=== PATIENT | female | born 1985 | race Caucasian/White ===

== ENCOUNTER 2017-05-25 13:57 | Emergency (ER) | payer OTHER ==
[~2017-05-25] VITALS: Ht 149.9 cm; Wt 45.4 kg
--- NOTE | 2017-05-25 14:19 | ED PSYCHIATRIC COMPLAINT ---
History of Present Illness General Chief Complaint: Psychiatric Related Complaint Stated Complaint: ?BIPOLAR/POST- DEPRESSION Source: patient, family, old records Exam Limitations: no limitations Vital Signs & Intake/Output Vital Signs & Intake/Output Vital Signs Date Time Temp Pulse Resp B/P B/P Pulse O2 O2 Flow FiO2 Mean Ox Delivery Rate 05/25 2131 98.2 94 18 111/65 97 Room Air 05/25 1702 98.5 104 18 107/61 96 Room Air 05/25 1406 98.0 101 20 125/77 98 Room Air ED Intake and Output 05/26 0000 05/25 1200 Intake Total Output Total Balance Patient 99 lb 15.99 oz Weight Weight Reported by Patient Measurement Method Allergies Coded Allergies: No Known Allergies (05/25/17) Reconcile Medications Creatine (Unknown Strength) POWDER (Unknown Dose) PO DAILY SUPPLEMENT ( Reported) Vitamin E Acid Succinate (Vitamin E) (Unknown Strength) TABLET (Unknown Dose) PO DAILY SUPPLEMENT (Reported) Triage Note: PT TO ED WITH WITH ?BIPOLAR, POST DEPRESSION. PT CRYING AND LAUGHING IN TRIAGE, Triage Nurses Notes Reviewed? yes Onset: Gradual Duration: week(s):, constant, getting worse Timing: recent history Severity: moderate Severity Numbers: 10 Associated Symptoms: denies : No Patient currently breastfeeds: No HPI: 32 year old female with history of bipolar, depression and alcohol abuse presents to the ER with her for evaluation. According to the patient's she has been acting differently than normal with "multiple personalities" for the past 2 days. They have 2 children at home the youngest is approximately 1 year old. She was hospitalized in December for one week for similar symptoms. She is not currently on any medications. She drinks half a bottle of hard liquor every day she denies any use today. No drug use when questioned the patient denies suicidal or homicidal ideation however at times her first or herself in the third person. (CHET CORMIER,KATHY) Past History Travel History Traveled to [place] past 21 day No Medical History Any Pertinent Medical History? see below for history Neurological: NONE EENT: NONE Cardiovascular: NONE Respiratory: NONE Gastrointestinal: NONE Hepatic: NONE Renal: NONE Musculoskeletal: NONE Psychiatric: anxiety, bipolar disease, depression Endocrine: NONE Blood Disorders: NONE Cancer(s): NONE BUSINESS SYSTEMS ADVISOR/Reproductive: NONE Surgical History Surgical History: non-contributory Psychosocial History What is your primary language O[place]i Tobacco Use: Current Daily Use Daily Tobacco Use Amount/Type: => 5 Cigarettes daily ETOH Use: denies use Illicit Drug Use: denies illicit drug use Family History Hx Contributory? No (KATHY MORRISON) Review of Systems Review of Systems Constitutional: Reports: see HPI. Comments Review of systems: See HPI, All other systems negative. Constitutional, no chills no fever, no malaise HEENT: no sore throat no congestion, no ear pain Cardiovascular: No chest pain , no palpitation Skin: no rashes, no change in skin Respiratory: No dyspnea no cough no sputum GI: No nausea no vomiting, no diarrhea, : No dysuria No hematuria, Muscle skeletal: No joint pain, no joint swelling, no back pain Neurologic: No numbness no confusion, no headache Psych: See hPI Heme/endocrine: No bruising no bleeding Immunology: No lymphadenopathy (KATHY MORRISON) Physical Exam Physical Exam General Appearance: well developed/nourished, no apparent distress, alert, awake Neurological/Psychiatric: no motor/sensory deficits, awake, junior underwriter II-XII nml as tested Appearance/Memory/Insight: impaired insight Behavoir/Eye Contact/Speech: cooperative Comments: Well-developed well-nourished person in no acute distress HEENT: Normal EENT exam; PERRL, EOMI, HEAD is atraumatic. moist mucous membranes. Neck: Supple, normal range of motion Back: Nontender, Full range of motion Cardiovascular: Regular rate and rhythms no murmurs rubs Respiratory: Chest nontender.There were no bony deformities, no asymmetry. No respiratory distress. Patient speaking in full complete sentences. Breath sounds clear to auscultation bilaterally: NO W/R/R Abdomen: Soft, nontender nondistended, no appreciable organomegaly. Normal bowel sounds. No rebound/guarding, Extremity: No edema, full range of motion of extremities, Neuro: Alert oriented x3, motor sensory normal, cranial nerves II through XII grossly intact. There were no obvious focal neurologic abnormalities. Skin: No appreciable rash on exposed skin, skin is warm and dry. Psych: Mood and affect is normal, memory and judgment is normal. SAD PERSONS Done? patient not suicidal (KATHY MORRISON) Progress Differential Diagnosis: drug intoxication, drug withdrawal, electrolyte abnormality, BIPOLAR Plan of Care: Orders Procedure Date/time Status Regular Diet 05/26 B Active URINE DRUG SCREEN FOR ER ONLY 05/25 143 Complete ETHANOL 05/25 143 Complete COMPREHENSIVE METABOLIC PANEL 05/25 143 Complete CBC WITHOUT DIFFERENTIAL 05/25 1436 Complete ED CRISIS PSYCH CONSULT 05/25 1436 Active Laboratory Tests 05/25/17 1450: Serum Alcohol 375.0 05/25/17 1450: Anion Gap 11, Estimated GFR > 60, BUN/Creatinine Ratio 14.3, Glucose 81, Calcium 8.6, Total Bilirubin 0.6, AST 40 H, ALT 32, Alkaline Phosphatase 64, Total Protein 6.4, Albumin 3.9, Globulin 2.5, Albumin/Globulin Ratio 1.6, CBC w Diff NO MAN DIFF REQ, RBC 4.32, MCV 81.1, MCH 25.9 L, RDW 22.7 H, MPV 8.4, Gran % 49.6, Lymphocytes % 44.4, Monocytes % 4.7, Eosinophils % 0.9, Basophils % 0.4, Absolute Granulocytes 1.9, Absolute Lymphocytes 1.7, Absolute Monocytes 0.2, Absolute Eosinophils 0, Absolute Basophils 0, PUBS MCHC 32.0 L, Urine Opiates Screen < 100.00, Methadone Screen < 40, Barbiturate Screen < 60, Ur Phencyclidine Scrn < 6.00, Amphetamines Screen < 100, U Benzodiazepines Scrn < 85, Urine Cocaine Screen < 50, Urine Cannabis Screen 78.60 H Labs ordered old records reviewed case discussed with Dr. Desouza crisis consult ordered (KATHY MORRISON) Hand-Off Endorsed To: BRENDA FUENTES,GARRICK Bergman Endorsed Time: 2003 Pending: consult (crisis), other (sobriety) (KATHY MORRISON) Departure Departure Disposition: STILL A PATIENT Condition: Stable Clinical Impression Primary Impression: Alcohol intoxication Secondary Impressions: Cannabis abuse Referrals: PATIENT HAS NO PRIMARY CARE DR (PCP/Family) Departure Forms: Customer Survey General Discharge Information (KATHY MORRISON) Departure Comments 05/25/17, 20:50... pt is awake and alert, lucid in responding to questions. She denies SI/HI. She is awaiting a ride from her mother to go home. PA/CABLE SYSTEMS INSTALLER Co-Sign Statement Statement: ED Attending supervision documentation- [x] I saw and evaluated the patient. I have also reviewed all the pertinent lab results and diagnostic results. I agree with the findings and the plan of care as documented in the PA's/CABLE SYSTEMS INSTALLER's documentation. [] I have reviewed the ED Record and agree with the PA's/CABLE SYSTEMS INSTALLER's documentation. [] Additions or exceptions (if any) to the PAs/CABLE SYSTEMS INSTALLER's note and plan are summarized below: [] (BRENDA FUENTES,GARRICK Bergman)
[2017-05-25 15:05] LABS: ABSOLUTE BASOPHIL COUNT 0 /CUMM (0.0-0.2); ABSOLUTE EOSINOPHIL COUNT 0 /CUMM (0.0-0.7); ABSOLUTE GRANULOCYTE CT 1.9 /CUMM (1.4-6.5); ABSOLUTE LYMPH COUNT 1.7 /CUMM (1.2-3.4); ABSOLUTE MONOCYTE COUNT 0.2 /CUMM (0.10-0.60); BASOPHIL % 0.4 % (0.0-2.0); EOSINOPHIL % 0.9 % (0-5); GRANULOCYTE % 49.6 % (42.2-75.2); MEAN CORPUSCULAR HGB 25.9 PG (27.0-31.0); MEAN CORPUSCULAR VOLUME 81.1 FL (81.0-99.0); MEAN PLATELET VOLUME 8.4 FL (7.4-10.4); PLATELET COUNT 142 /CUMM (130-400); RBC DISTRIBUTION WIDTH 22.7 % (11.5-14.5); RED BLOOD CELL CT 4.32 /CUMM (4.20-5.40); WHITE BLOOD CELL COUNT 3.9 /CUMM (4.8-10.8)
[2017-05-25] MEDS ORDERED: CREATINE100 GM PO (17:50)
[2017-05-25] MEDS ORDERED: VITAMIN E100 UNIT PO (17:51)
[2017-05-25 21:31] VITALS: BP 111/65
== END 2017-05-25 21:31 ==
LOC: ERH 13:57
PROVIDERS: Physician Assistant Medical
DX: F10.129 Alcohol abuse with intoxication, unspecified (principal); F12.10 Cannabis abuse, uncomplicated
CPT/HCPCS: 80307; 96372; G0480; J2405